=== PATIENT | female | born 1985 | race Caucasian/White ===

== ENCOUNTER 2016-12-20 09:05 | Emergency (ER) | payer MEDICAID, OTHER ==
[~2016-12-20] VITALS: Ht 162.6 cm; Wt 72.0 kg
[2016-12-20 09:07] VITALS: Ht 162.6 cm; Wt 72.0 kg
[2016-12-20] MEDS ORDERED: ACETAMINOPHEN 500 MG TAB PO STA (09:33)
[2016-12-20 10:00] LABS: URINE BLOOD (Dip) POC 1+ (NEGATIVE)
--- NOTE | 2016-12-20 10:18 | RADRPT ---
PROCEDURE: US OB. CLINICAL INDICATION: . Fever. TECHNIQUE: Multiple sonographic images of the uterus were obtained. The images were revi ewed on a PACS workstation. COMPARISON: No prior studies are available for comparison. FINDINGS: There is a single live intrauterine gestation. heart rate is 179 beats per minute. Measurements were made in order to determine age. The results are as follows: BPD = 3.83 cm. HC = 15.03 cm. AC = 12.83 cm. FL = 2.54 cm. Estimated weight is 209 +/- 31 grams. LMP growth percentile is less than 3 %. Menstrual age by ultrasound dates is 17 weeks 6 days. The estimated date of delivery is 05/24/2017. Position is variable and placenta is anterior. There is no evidence for an abruption or placenta pre via. There is no adnexal mass or free fluid. IMPRESSION: 1. Single live intrauterine gestation of 17 weeks 6 days menstrual age by ultrasound dates. 2. The estimated date of delivery is 05/24/2017. RPTAT: QQ .Heath Martinez MD, Date Time Electronically viewed and signed by .Heath Martinez MD, on 12/20/2016 10:17 .R/
[2016-12-20 10:45] VITALS: PULSE 122; TEMP 99
[2016-12-20] MEDS ORDERED: NITR-58 PO (10:55)
[2016-12-20] MEDS ORDERED: ACET500C5 PO (10:55)
--- NOTE | 2016-12-20 11:09 | ERD ---
ER Documentation Chief Complaint Date/Time DATE: 12/20/16 TIME: 11:04 Chief Complaint fever since last night , 19 weeks preg HPI Patient is a 31-year-old female who is with a last normal menstrual period of 08/03/17 who presents to the ED with fever and body aches since last night. She states that she developed the symptoms suddenly yesterday. She denies sick contacts. She denies dizziness, neck pain or stiffness. She denies chest pain, shortness of breath or difficulty breathing she denies abdominal pain, nausea, vomiting, diarrhea or constipation. She states that she had a bowel movement today. She denies pelvic pain or vaginal bleeding. She states that she is being seen at the [facility] [place] and is unsure of her OB doctor's name. She has taken Tylenol for her symptoms which have helped minimally. She denies leg pain or swelling. No other complaints. ROS All systems reviewed and are negative except as per history of present illness. Medications Home Meds Active Scripts Acetaminophen* (Tylophen*) 500 Mg Capsule, 1 CAP PO Q6H Y for PAIN AND OR ELEVATED TEMP, #20 CAP Prov:SULMA BAUM PA-C 12/20/16 Nitrofurantoin Monohyd Macrocr* (Macrobid*) 100 Mg Capsr, 100 MG PO BID for 7 Days, CAP Prov:SULMA BAUM PA-C 12/20/16 PMhx/Soc Medical and Surgical Hx: pt denies Medical Hx, pt denies Surgical Hx History of Surgery: No Anesthesia Reaction: No Hx Neurological Disorder: No Hx Respiratory Disorders: No Hx Cardiac Disorders: No Hx Psychiatric Problems: No Hx Miscellaneous Medical Probl: No Hx Alcohol Use: No Hx Substance Use: No Hx Tobacco Use: No Smoking Status: Never smoker Physical Exam Vitals Vital Signs Date Time Temp Pulse Resp B/P Pulse Ox O2 Delivery O2 Flow Rate FiO2 12/20/16 10:45 99.0 122 12/20/16 09:07 101.1 116 18 109/64 98 Physical Exam GENERAL: Well-developed, well-nourished female. Appears in no acute distress. HEAD: Normocephalic, atraumatic. EYES: Pupils are equally reactive bilaterally. EOMs grossly intact. No conjunctival erythema. ENT: Moist mucous membranes. No uvula deviation. No kissing tonsils. No exudates. NECK: Supple. No lymphadenopathy or thyromegaly. No meningismus. negative kernig. negative brudinski. LUNG: Clear to auscultation bilaterally. No rhonchi, wheezing, rales or coarse breath sounds. HEART: Regular rate and rhythm. No murmurs, rubs or gallops. ABDOMEN: No scars, ecchymosis or rashes noted. Soft, nontender, and nondistended. Positive bowel sounds in all four quadrants. No rebound tenderness , no guarding. (-) McBurneys point tenderness. No CVA tenderness. BACK: No midline tenderness. Extremities: Equal pulses bilaterally. No peripheral clubbing, cyanosis or edema. No unilateral leg swelling. NEUROLOGIC: Alert and oriented. Moving all four extremities. 5/5 strength in all extremities. Normal speech. Steady gait. SKIN: Normal color. Warm and dry. No rashes or lesions. Capillary refill < 2 seconds Results 24 hrs Laboratory Tests Test 12/20/16 10:00 Bedside Urine pH (LAB) 5.5 Bedside Urine Protein (LAB) 2+ Bedside Urine Glucose (UA) Negative Bedside Urine Ketones (LAB) 2+ Bedside Urine Blood 1+ Bedside Urine Nitrite (LAB) Negative Bedside Urine Leukocyte Esterase (L Trace Current Medications Medications (Trade) Dose Ordered Sig/Rosales Route PRN Reason Start Time Stop Time Status Last Admin Dose Admin Acetaminophen (Tylenol Tab) 1,000 mg ONCE STAT PO 12/20/16 09:33 12/20/16 09:41 DC 12/20/16 09:50 Procedures/MDM ER COURSE: I kept the patient and/or family informed of laboratory and diagnostic imaging results throughout the emergency room course. IMAGING STUDIES [place] [address] Radiology Main Line: [phone] DIAGNOSTIC IMAGING REPORT Patient: TRACI SANTILLAN : 1985 Age: 31 Sex: F MR #: [id number] DOS: 12/20/16932 Ordering MD: SULMA BAUM PA-C Location: [facility] Room/Bed: PROCEDURE: US OB. CLINICAL INDICATION: . Fever. TECHNIQUE: Multiple sonographic images of the uterus were obtained. The images were reviewed on a PACS workstation. COMPARISON: No prior studies are available for comparison. FINDINGS: There is a single live intrauterine gestation. heart rate is 179 beats per minute. Measurements were made in order to determine age. The results are as follows: BPD = 3.83 cm. HC = 15.03 cm. AC = 12.83 cm. FL = 2.54 cm. Estimated weight is 209 +/- 31 grams. LMP growth percentile is less than 3 %. Menstrual age by ultrasound dates is 17 weeks 6 days. The estimated date of delivery is 05/24/2017. Position is variable and placenta is anterior. There is no evidence for an abruption or placenta previa. There is no adnexal mass or free fluid. IMPRESSION: 1. Single live intrauterine gestation of 17 weeks 6 days menstrual age by ultrasound dates. 2. The estimated date of delivery is 05/24/2017. RPTAT: QQ .Heath Martinez MD, MD Date Time Electronically viewed and signed by .Heath Martinez MD, MD on 12/20/2016 10:17 .R/ CC: SULMA BAUM PA-C LABORATORY STUDIES Urine dip shows trace leukocytes, no nitrites. Influenza negative. Urine culture pending. Tylenol 1000 mg tolerated well with no adverse reaction. Temperature is down trending MEDICAL DECISION MAKING: This is a 31-year-old female who presents with fever and body aches 1 day. Vital signs were reviewed. Patient is not hypoxic. Patient has a temperature of 101.1 with a pulse of 116. I consulted with Dr. Mueller regarding this patient who advised for the appropriate testing. Patient likely has a UTI and also likely has URI of viral etiology. Low suspicion for ovarian torsion, PID, tuboovarian abscess, ectopic , bowel obstruction, pyelonephritis, appendicitis, cervicitis, septic , molar , HELLP syndrome, preeclampsia, eclampsia, placenta previa, placenta abruptia. I reexamined patient after administration of Tylenol, patient seen improvement in symptoms and her temperature is down trending. Patient does not have CVA tenderness and does not have nitrates on urine dip. Patient is feeling much better and is ready to be discharged. DISCHARGE: At this time, patient is stable for discharge and outpatient management with no new complaints during the ER course. Patient was sent home with Macrobid and Tylenol and to follow-up with her OB doctor in 2 days.. Patient will be discharged home with instructions to recheck for new or worsening symptoms such as fever, nausea, weakness, LOC and to follow up with primary care in the next 1 -2 days. Patient was advised to return to the ER for any new or worsening symptoms. Plan was discussed and patient and/or family understands and agrees. Home instructions were given. Departure Diagnosis: Primary Impression: Cystitis Condition: Stable Patient Instructions: Cystitis Additional Instructions: Llame al doctor PENG y edy angelo KEVIN PARA DENTRO DE 1-2 ARAUJO.Dgale a la secretaria que nosotros le instruimos hacer esta kevin.Avise o llame si camp condicin se empeora antes de la kevni. Regresa aqui si peor o no mejor. SULMA BAUM PA-C Dec 20, 2016 11:09
== END 2016-12-20 11:14 | disposition home or self-care (01) ==
LOC: FTE 09:05
DX: O23.12 Infections of bladder in pregnancy, second trimester (principal); R50.9 Fever, unspecified; Z3A.19 19 weeks gestation of pregnancy
CPT/HCPCS: 76805; 81003; 87086; 87400; Z7502; Z7610

== ENCOUNTER 2017-05-09 08:06 | Outpatient (CLI) | payer MEDICAID ==
[~2017-05-09] VITALS: Ht 152.4 cm; Wt 77.9 kg
[~2017-05-09 08:06] MED LIST: ACET500C5 PO; NITR-58 PO
[2017-05-09 08:24] VITALS: BP 101/55; PULSE 18; RESP 18
[2017-05-09 08:25] VITALS: Ht 152.4 cm; Wt 77.9 kg
--- NOTE | 2017-05-09 09:18 | RADRPT ---
PROCEDURE: OB ultrasound for biophysical profile CLINICAL INDICATION: Poor tone. TECHNIQUE: Multiple sonographic images of the pelvis were obtained. Transabdominal views of the g ravid uterus are available for review. The images were reviewed on a PACS workstation. COMPARISON: None FINDINGS: breathing movement = 2/2 tone = 2/2 motion = 2/2 NIURKA = 2/2 NIURKA = 11.0 cm Single live intrauterine with cardiac activity of 144 bpm. position is cephal ic. The placenta is anterior. IMPRESSION: 1. Single live intrauterine gestation. 2. Biophysical profile = 8/8. 3. NIURKA = 11.0 cm. RPTAT: HH .Lori Hansen MD, MD Date Time Electronically viewed and signed by .Lori Hansen MD, on 05/09/2017 09:17 .G/
[2017-05-09] MEDS ORDERED: CITRIC ACID/NA CITRATE 30 ML CUP PO ONE (10:30)
[2017-05-09] MEDS ORDERED: CITRIC ACID/NA CITRATE 30 ML CUP ONE (10:32)
[2017-05-09] MEDS ORDERED: PREN-93 PO (10:34)
[2017-05-09] MEDS ORDERED: CALC-143 PO (10:35)
[2017-05-09] MEDS ORDERED: FERR1TAB13 PO (10:36)
[2017-05-09] MEDS ORDERED: IRON1TAB77 PO (10:36)
[2017-05-09 11:01] LABS: BASOPHILS % 0.2 % (0.0-2.0); EOSINOPHILS % 0.3 % (0.0-7.0); HEMATOCRIT 34.8 % (37.0-47.0); HEMOGLOBIN 11.2 g/dl (12.0-16.0); LYMPHOCYTES # 1.5 10^3/ul (0.8-2.9); LYMPHOCYTES % 11.8 % (15.0-51.0); MEAN CORPUSCULAR HGB CONC 32.2 g/dl (32.0-37.0); MEAN CORPUSCULAR VOLUME 90.2 fl (82.0-101.0); MEAN PLATELET VOLUME 12.3 fl (7.4-10.4); MONOCYTE # 1.4 10^3/ul (0.3-0.9); MONOCYTES % 11.1 % (0.0-11.0); NEUTROPHILS % 75.5 % (39.0-77.0); PLATELET COUNT 182 10^3/UL (140-415); RED BLOOD COUNT 3.86 10^6/ul (4.20-5.40); RED CELL DISTRIBUTION WIDTH 13.4 % (11.5-14.5); WHITE BLOOD COUNT 12.7 10^3/ul (4.8-10.8)
[2017-05-09 11:22] LABS: ALBUMIN 3.5 g/dl (3.3-4.9); ALBUMIN/GLOBULIN RATIO 1.2; BILIRUBIN,INDIRECT 0.3 mg/dl (0-1.1); BILIRUBIN,TOTAL 0.3 mg/dl (0.2-1.3); CALCIUM 9.6 mg/dl (8.4-10.2); CREATININE 0.53 mg/dl (0.44-1.00); POTASSIUM 3.7 mmol/L (3.5-5.1); TOTAL PROTEIN 6.4 g/dl (6.1-8.1)
[2017-05-09 11:30] LABS: ADD UMIC YES; UR ASCORBIC ACID NEGATIVE (NEGATIVE); UR BACTERIA FEW /HPF (NONE SEEN); UR BILIRUBIN (Dip) NEGATIVE (NEGATIVE); UR BLOOD (Dip) NEGATIVE (NEGATIVE); UR CLARITY SLIGHTLY CLOUDY (CLEAR); UR COLOR YELLOW (YELLOW); UR GLUCOSE (Dip) NEGATIVE (NEGATIVE); UR KETONES (Dip) 1+ mg/dL (NEGATIVE); UR LEUKOCYTE ESTERASE (Dip) 3+ Leu/ul (NEGATIVE); UR MUCUS FEW /HPF (NONE SEEN); UR NITRITE (Dip) NEGATIVE (NEGATIVE); UR RBC 1 /HPF (0-5); UR SPECIFIC GRAVITY (Dip) 1.012 (1.003-1.030); UR SQUAMOUS EPITHELIAL CELL FEW /HPF (FEW); UR TOTAL PROTEIN (Dip) NEGATIVE (NEGATIVE); UR UROBILINOGEN (Dip) NEGATIVE (NEGATIVE)
--- NOTE | 2017-05-09 11:56 | TRIAGE ---
OB Triage Datetime Report Generated by CPN: 05/09/2017 11:56 Datetime: 05/09/2017 11:48 Labor Evaluation Frequency: IRREG Monitor Mode: External Duration (sec)2399: 60-90 Pattern: Normal: <= 5 Contractions in 10 Minutes Resting Tone [place]: Relaxed Heart Rate FHR Baseline Rate: 140 Monitor Mode: External US Variability: Moderate 6-25 bpm Accelerations: 15X15 Decelerations: None Category: Category I Pain Assessment Pain Scale: 3 Pain Presence: Intermittent Pain Type: Contraction Pain Location: Abdomen Pain Relief Measures: Comfort Measures Datetime: 05/09/2017 11:35 Pain Assessment Pain Scale: 3 Pain Presence: Intermittent Pain Type: Contraction Pain Location: Abdomen Pain Relief Measures: Comfort Measures Vaginal Exam Dilatation (cms): 1.0 Effacement (%): 40 Station: -3 Exam By: FAREEDA Datetime: 05/09/2017 08:47 Labor Evaluation Frequency: 3-5 Monitor Mode: External Duration (sec)2399: 60-90 Pattern: Normal: <= 5 Contractions in 10 Minutes Resting Tone [place]: Relaxed Heart Rate FHR Baseline Rate: 140 Monitor Mode: External US Variability: Moderate 6-25 bpm Accelerations: 15X15 Decelerations: None Category: Category I Datetime: 05/09/2017 08:38 Vaginal Exam Dilatation (cms): 1.0 Effacement (%): 40 Station: -3 Exam By: fareeda Membrane Status: Intact Datetime: 05/09/2017 08:29 Assessment Type: Admission Assessment Maternal Assessment Level of Consciousness: Fully Conscious DTR's/Clonus: DTRs 2+; No Clonus Headache: Denies Blurred Vision: No Respiratory Effort: Unlabored; Regular Rhythm; Equal Expansion Breath Sounds, Left: Clear and Equal Breath Sounds, Right: Clear and Equal Nausea/Vomiting: Denies RUQ Epigastric Pain: Denies Lower Extremities Edema: None Degree: None Upper Extremities Edema: None Degree: None Facial Edema: None Fall Risk Assessment History of Falling: (0) No Secondary Diagnosis: (0) No Ambulatory Aid: (0) Bedrest/Nurse Assist IV Therapy: (0) No Gait: (0) Normal/Bedrest/Immobile Mental Status: (0) Oriented to Own Ability Fall Score: 0 Fall Risk Score Definition: No Risk: No action required Datetime: 05/09/2017 08:20 Time of Arrival: 05/09/2017 07:55 EGA: 38.6 Arrived By: Ambulatory Arrived From: Home Chief Complaint: UC'S SINCE 2300 LAST NIGHT Movement: Present Contractions: Irregular Time Contractions Began: 05/08/2017 23:00 Rupture of Membranes: Denies Vaginal Bleeding: None Vaginal Discharge: Denies Recent Sexual Intercouse: Denies Abdominal Trauma: Not Applicable Patient Complaints: Contractions Time Provider Notified: 05/09/2017 08:42 Provider Notified: DR. MUSA Initial Plan: TOCO/ US, BPP, HAVE PT. WALK FOR 2 HOURS, CBC, CMP, UA, RANDOM BLOOD GLUCOSE, BICITR A 30 ML PO X1 Datetime: 05/09/2017 08:16 Stage of : OB Triage Pain Assessment Pain Scale: 3 Pain Presence: Intermittent Pain Type: Contraction Pain Location: Abdomen Pain Relief Measures: Comfort Measures
--- NOTE | 2017-05-09 18:11 | QN ---
Documentation Comment iup 38 weeks co ucx vss exam wnl os closed a/p iup 38 weeks false labor dc savannah DARIEL SHOOK MD May 09, 2017 18:11
== END 2017-05-09 12:05 | disposition home or self-care (01) ==
LOC: LAB 08:06 → L-D 08:06 → LAB 12:05
PROVIDERS: ATTEND Obstetrics & Gynecology
DX: O62.9 Abnormality of forces of labor, unspecified (principal); Z3A.38 38 weeks gestation of pregnancy; O47.1 False labor at or after 37 completed weeks of gestation
CPT/HCPCS: 76818; 80053; 81001; 85025; Z7500; Z7610; G0463